=== PATIENT | female | born 1985 | race Hispanic/Latino ===

== ENCOUNTER 2017-08-21 09:37 | Inpatient (IN) | payer OTHER ==
[2017-08-21 10:41] VITALS: BMI 31.1
[2017-08-21] MEDS: Lactated Ringer's 1,000 ML IV SCH ×4 (10:45→20:45)
[2017-08-21] MEDS ORDERED: Oxytocin 30 units/LR 500ML 30 U/500 ML BAG IV ONE (10:46)
[2017-08-21 11:02] LABS: BASO % 0.3 % (0.0-2.0); EOS # 0.1 K/uL (0.0-0.7); EOS % 0.6 % (0.0-4.0); HEMOGLOBIN 12.5 g/dL (12.0-16.0); LYMPH # 1.8 K/uL (1.0-4.3); LYMPH % 20.6 % (20.0-40.0); MEAN CELL VOLUME 90.7 fl (81.0-99.0); MEAN CORPUSCULAR HEMOGLOBIN 32.1 pg (27.0-31.0); MEAN CORPUSCULAR HGB CONC 35.4 g/dL (33.0-37.0); MEAN PLATELET VOLUME 10.1 fl (7.2-11.7); MONO # 0.6 K/uL (0.0-0.8); MONO % 7.3 % (0.0-10.0); NEUT # 6.4 K/uL (1.8-7.0); NEUT % 71.2 % (50.0-75.0); NRBC % 0.2 % (0.0-0.0); RBC 3.88 Mil/uL (3.80-5.20)
[2017-08-21] MEDS ORDERED: Oxytocin 30 units/LR 500ML 30 U/500 ML BAG IV SCH (11:30)
--- NOTE | 2017-08-21 13:46 | OBHP ---
Datetime: 08/21/2017 13:38 IP Adm Impression: Term, intrauterine IP Admit Plan: Admit to unit; Observation/Evaluation Admit Comment, IP Provider: 32 yo G1 at 40+4 wks w/ SROM, admitted to L_D. Pitocin started. FHT reassuring. GBS negative. H_P dictated, "[id number]" (ES) Extremities - PN: Normal Abdomen - PN: Normal Lungs - PN: Normal Heart - PN: Normal Neurologic - PN: Normal General - PN: Normal FHR - Baseline A Provider: 130's Membranes, Provider: Intact Contraction Comments Provider: 2-6 EGA AdmitDate IP: 40.1 Vital Signs Provider: Reviewed; Within Normal Limits IP Chief Complaint: Uterine contractions; Suspected ruptured membranes NICHD Variability Prov Fetus A: Moderate 6-25bpm NICHD Accel Fetus A IP Provider: 15X15 FHR Category Provider Fetus A: Category I NICHD Decel Fetus A IP Provider: None Dilatation, Provider: 1 Effacement, Provider: 60 Station, Provider: -3 Genitourinary Exam: Normal
--- NOTE | 2017-08-21 13:49 | OBADHP ---
Datetime: 08/21/2017 13:46 Admit Comment, IP Provider: 32 yo G1 at 40+4 wks w/ SROM, admitted to L_D. FHT reassuring. GBS negative. Pitocin started. H_P dictated, "[id number]" (ES) Extremities - PN: Normal Abdomen - PN: Normal Back - PN: Normal Lungs - PN: Normal Heart - PN: Normal General - PN: Normal FHR - Baseline A Provider: 130's Contraction Comments Provider: Q2-6 Vital Signs Provider: Reviewed; Within Normal Limits IP Chief Complaint: Suspected ruptured membranes NICHD Variability Prov Fetus A: Moderate 6-25bpm NICHD Accel Fetus A IP Provider: 15X15 NICHD Decel Fetus A IP Provider: None Dilatation, Provider: 1 Effacement, Provider: 60 Station, Provider: -3 Genitourinary Exam: Normal EGA AdmitDate IP: 40.1 IP Adm Impression: Term, intrauterine IP Admit Plan: Admit to unit Datetime: 08/21/2017 13:38 Neurologic - PN: Normal Amniotic Fluid Color, Provider: Clear Membranes, Provider: Ruptured Comments, ACOG Physical Exam: Spec: postive pool, nitrazine positive Pool Provider: Positive Nitrazine Provider: Positive FHR Category Provider Fetus A: Category I
--- NOTE | 2017-08-21 14:13 | HP ---
HISTORY OF PRESENT ILLNESS: This is a 32-year-old G1 at 40 weeks and 4 days with an EDC of 08/17/2017 by LMP who reports that her water broke at 8:15 a.m., reports that she had contractions on and off for the last week, but they became more frequent, about every 15 minutes, after her water broke. She reports that she noticed blood tinge in the water and reports movement today. The patient's care was with [facility] with Dr. Brooks. The patient is Rh negative. The patient received Tdap on 06/20/2017 and she received RhoGAM on 05/25/2017. This was complicated by the fact that she had an elevated one-hour Glucola of 156 on 05/25/2017 and she had a normal 3-hour glucose tolerance test on 06/06/2017. PAST MEDICAL HISTORY: Seasonal allergies. PAST SURGICAL HISTORY: None. MEDICATIONS: vitamins. ALLERGIES: NO KNOWN DRUG ALLERGIES. FAMILY HISTORY: Noncontributory. SOCIAL HISTORY: The patient denies tobacco, alcohol or illicit drug use. PAST GYNECOLOGIC HISTORY: Menarche at 13 with a history of regular periods. The patient denies any history of any STDs or any abnormal Paps. LABS: On 09/30/2016, varicella zoster IgG was positive. Pap smear was negative, HPV negative, Rubella was immune. On 01/05/2017, HIV was nonreactive. SMA, cystic fibrosis, fragile X, and Duchenne muscular dystrophy were all negative. Varicella zoster IgG was positive. Blood type was O negative. Antibody screen negative. Hemoglobin electrophoresis normal. Urine culture with probable contamination. RPR was nonreactive. Rubella was positive. Hepatitis B surface antigen negative. On 01/30/2017, panorama was low risk male fetus. On 01/31/2017, her urine culture was probable contamination. Gonorrhea and Chlamydia and trichomonas were all negative. On 04/06/2017, AFP was negative. On 05/25/2017, one-hour Glucola was 156. RPR was nonreactive and HIV was nonreactive. On 06/06/2017, 3-hour glucose tolerance testing was fasting- 83, 1-hour was 138, 2-hour was 115, and 3-hour was 110. On 07/25/2017, group B strep was negative, hemoglobin was 12.5, platelets were 216,000. PHYSICAL EXAMINATION: VITAL SIGNS: Afebrile. Vital signs stable. GENERAL: The patient appears comfortable, lying in bed. HEART: Regular rate and rhythm. CHEST: Lungs are clear to auscultation bilaterally. ABDOMEN: Soft, nontender, and gravid. head feels to be down. SPECULUM: Positive pooling, positive nitrazine. VAGINAL: Cervix was dilated 1 cm, 60% effaced, -3 station on at 10:20 a.m. External monitoring: Baseline is in the 130s with moderate variability with positive accelerations. Tocodynamometer: Contractions about every 2-6 minutes. ASSESSMENT AND PLAN: This is a 32-year-old G1 at 40 weeks and 4 days with spontaneous rupture of membranes. She is GBS negative. heart rate is reassuring. The patient was admitted to labor and delivery. Will start Pitocin. Agustin Quevedo MD MTDD
[2017-08-21] MEDS ORDERED: Fentanyl/Bupivacaine HCl 250 ML EPI ONE ×2 (15:28→15:30)
[2017-08-21] MEDS ORDERED: Lidocaine 1% Inj (20ml) ONE (23:44)
[2017-08-22] MEDS ORDERED: Bupivacaine HCl 0.25% PF (10 ml) Inj ONE (00:21)
[2017-08-22] MEDS ORDERED: ceFAZolin 2 GM in Sodium Chloride 0.9% 100 ML IVPB ONE (07:30)
--- NOTE | 2017-08-22 07:42 | OBPN ---
Datetime: 08/22/2017 07:01 IP Progress Impression: Arrest of dilatation/descent IP Informed Consent Obtain: Section Delivery; Risks, Benefits and Alternatives Discussed IP Progress Plan: Deliver- Section Membranes, Provider: Ruptured Amniotic Fluid Color, Provider: Clear FHR - Baseline A Provider: 120's IP Progress Note Comment: 32 yo G1 at 40+5 wks w/ arrest of dilation at 9 cm. Discussed dx w/ pt and her . Consents signed for primary section and possible transfusion. All questions answered. Vital Signs Provider: Reviewed NICHD Accel Fetus A IP Provider: 15X15 FHR Category Provider Fetus A: Category I NICHD Variability Prov Fetus A: Moderate 6-25bpm Dilatation, Provider: 9 Effacement, Provider: 100 Station, Provider: -1 NICHD Decel Fetus A IP Provider: None Datetime: 08/21/2017 13:46 Contraction Comments Provider: Q2-6 Datetime: 08/21/2017 13:38 Pool Provider: Positive Nitrazine Provider: Positive
[2017-08-22] MEDS ORDERED: ceFAZolin IV 2 gm in Dextrose 2 GM/50 ML BAG IVPB ONE ×2 (08:08→08:45)
[2017-08-22] MEDS ORDERED: Lidocaine 2% PF (10 ml) Amp ONE (08:16)
[2017-08-22] MEDS ORDERED: EPINEPHrine 1 mg/ml (1:1000) Inj ONE (08:17)
[2017-08-22] MEDS ORDERED: Morphine 1 mg/ml preservative-free Inj(Duramorph) ONE (08:18)
[2017-08-22] MEDS ORDERED: Phenylephrine 10 mg/ml Inj ONE ×2 (08:43→08:44)
[2017-08-22] MEDS ORDERED: ePHEDrine 50 mg/ml Inj ONE (08:47)
[2017-08-22] MEDS ORDERED: Oxycodone/Acetaminophen 5/325 mg Tab PO PRN ×3 (09:52→14:20)
[2017-08-22] MEDS ORDERED: Simethicone 80 mg Chewtab PO SCH (10:00)
[2017-08-22] MEDS ORDERED: DiphenhydrAMINE 50 mg/ml Inj IVP PRN ×2 (10:01→14:20)
[2017-08-22] MEDS ORDERED: Naloxone 0.4 mg/ml Inj (Adult) IVP PRN ×2 (10:01→14:20)
--- NOTE | 2017-08-22 11:43 | OBDS ---
DELIVERY PERSONNEL Delivery Doctor: Pedrito Quevedo MD Rerecording Mixer: Linda Virgen RN Anesthesiologist: Margret James MD MATERNAL INFORMATION Delivery Anesthesia: Spinal Medications in Delivery: Pitocin 30 mu/500 mL, Pitocin 20 mu/1000 mL Placenta Cultured: No Maternal Complications: Other Other Maternal Complications: Arrest of Descent Provider Comments: Pre-op dx: 32 yo G1 at 40+5 wks w/ arrest of dilation at 9 cm Post-op dx: Same Procedure: Primary low transverse section Surgeon: Sae [employer]chand[employer] Planning Manager: Dr. Kang, the hospitalist Anesthesia: Dr. James Anesthesia: Epidural-> Spinal Findings: Viable male delivered through clear fluid in OP position at 0856. Apgars 9 and 9 . Wt 3350 gms, 7#6. Nl appearing uterus, tubes and ovaries EBL: 750 mL Complications: None LABOR SUMMARY EDC: 08/20/2017 00:00 No. Babies in Womb: 1 Attempted: No Labor Anesthesia: Epidural LABOR INFORMATION Reason for Induction: Premature Rupture of Membranes Onset of Labor: 08/22/2017 23:20 Oxytocin: Augmentation Group B Beta Strep: Negative Antibiotics # of Doses: 1 Antibiotics Time of Last Dose: 0835 Steroids Given: None Reason Steroids Not Administered: Not Applicable MEMBRANES Membranes Rupture Method: Spontaneous Rupture of Membranes: 08/21/2017 08:15 Length of Rupture (hrs): 24.68 Amniotic Fluid Color: Clear Amniotic Fluid Amount: Moderate Amniotic Fluid Odor: Normal STAGES OF LABOR Stage 3 hrs: 0 Stage 3 min: 1 Total Time in Labor hrs: -14 Total Time in Labor min: -23 CSECTION DELIVERY Primary Indication: Arrest of Descent CSection Urgency: Non Elective CSection Incidence: Primary Labor: Labor Elective: Nonelective CSection Incision: Lower Uterine Transverse BABY A INFORMATION Infant Delivery Date/Time: 08/22/2017 08:56 Method of Delivery: Born in Route : No : N/A Forceps: N/A Vacuum Extraction: N/A Shoulder Dystocia : No SHOULDER DYSTOCIA BABY A Delivery Date/Time: 08/22/2017 08:56 PRESENTATION/POSITION BABY A Presentation: Cephalic Cephalic Presentation: Vertex Breech Presentation: N/A PLACENTA INFORMATION BABY A Placenta Delivery Time : 08/22/2017 08:57 Placenta Method of Delivery: Expressed Placenta Status: Delivered SCORES BABY A Heart Rate 1 min: >100 bpm Resp Effort 1 min: Good Cry Reflex Irritability 1 min: Cough or Sneeze or Pulls Away Muscle Tone 1 min: Active Motion Color 1 min: Body [place], Extremities Blue Resuscitation Effort 1 min: N/A SCORE 1 MIN: 9 Heart Rate 5 min: >100 bpm Resp Effort 5 min: Good Cry Reflex Irritability 5 min: Cough or Sneeze or Pulls Away Muscle Tone 5 min: Active Motion Color 5 min: Body [place], Extremities Blue Resuscitation Effort 5 min: N/A SCORE 5 MIN: 9 INFANT INFORMATION BABY A Gestational Age at Delivery: 40.2 Gestational Status: Post-term Outcome : Liveborn Infant Condition : Stable Infant Sex: Male IDENTIFICATION/MEDS BABY A ID Band Number: [id number] ID Band Location: Left Leg; Left Arm WEIGHT/LENGTH BABY A Birthweight (gms): 3350 Weight (lb): 7 Infant Weight (oz): 6 CORD INFORMATION BABY A No. Cord Vessels: 3 Nuchal Cord : N/A Cord Blood Taken: Yes Infant Suction: Mouth; Nose
--- NOTE | 2017-08-22 13:19 | OP ---
PROCEDURE DATE: 08/22/2017 PREOPERATIVE DIAGNOSIS: This is a 32-year-old G1 at 40 weeks and 5 days with arrest of dilation at 9 cm. POSTOPERATIVE DIAGNOSIS: This is a 32-year-old G1 at 40 weeks and 5 days with arrest of dilation at 9 cm. PROCEDURE: Primary low-transverse section. SURGEON: Agustin Quevedo MD ABSORPTION PLANT OPERATOR HELPER: Lance Kang MD, the hospitalist. Dr. Kang was the assistant spa manager and participated in the surgery for the entire duration of the case. She helped create exposure, she also helped maintain hemostasis, operated throughout the case on the side of the patient that was across from her and assisted in the delivery of the by applying fundal pressure. This case could not have been completed without her assistance. ANESTHESIA ADMINISTERED BY: Dr. James. TYPE OF ANESTHESIA: Spinal. The epidural was changed to a spinal. FINDINGS: A viable male infant delivered through clear fluid in OP position at 0856 hours. Apgars were 9 and 9 at one and five minutes respectively. The weight was 3350 g or 7 pounds 6 ounces. Normal-appearing uterus, tubes and ovaries. ESTIMATED BLOOD LOSS: About 750 mL. COMPLICATIONS: None. DESCRIPTION OF PROCEDURE: The patient was taken to the operating room where epidural anesthesia was changed to spinal. She was then prepped and draped in the normal sterile fashion in the dorsal supine position with a leftward tilt. A time-out was done. The spinal was tested and found to be adequate. A Pfannenstiel skin incision was then made with the scalpel and carried through to the underlying layer of fascia with the Bovie. The fascia was incised in the midline. The incision was extended laterally with the Bovie over a Park. The inferior aspect of the fascial incision was then grasped with the Florentin clamps, elevated and the underlying rectus muscles were dissected off bluntly with the Bovie. Attention was then turned to the superior aspect of this incision, which in a similar fashion was grasped, tented up with the Florentin clamps, and the rectus muscles dissected off bluntly and with the Bovie. The rectus muscles were then in the midline. The peritoneum was identified, tented up and entered sharply with the Metzenbaum scissors. The peritoneal incision was then extended superiorly and inferiorly with good visualization of the bladder. The bladder blade was then inserted and the vesicouterine peritoneum was identified, grasped with the pickups and entered sharply with the Metzenbaum scissors. The incision was then extended laterally and the bladder flap was created digitally. The bladder blade was then reinserted and the lower uterine segment was incised in transverse fashion with the scalpel. The uterine incision was then extended digitally in a cephalocaudad direction. The bladder blade was removed and the infant's head was delivered atraumatically. The nose and mouth were suctioned with the bulb suction. The cord was clamped and cut. The was handed off to the awaiting customer assistance representative. Cord blood was then collected. The placenta was then delivered as the uterus was massaged. The uterus was then exteriorized and cleared of all clots and debris with a dry sponge curettage. The uterine incision was then repaired with 0 Vicryl in a running locked fashion. A second layer of 0 Monocryl was used in an imbricating fashion to reinforce the incision for hemostasis and for hemostasis. A [id number] suture with 0 Monocryl was then placed in the center of the incision for hemostasis. The abdomen was then well irrigated. The uterus was returned to the abdomen. The gutters were cleared of all clots. The uterine incision was reexamined and found to be hemostatic. The peritoneum was then closed with 2-0 chromic. The rectus muscle was then re-approximated with interrupted stitches of 0 chromic. The fascia was then re-approximated with 0 Vicryl in a running fashion. The space of the subcutaneous fat was then closed with interrupted stitches of 2-0 plain gut. The skin was then closed with 4-0 Monocryl in a subcuticular fashion. The patient tolerated the procedure well. Sponge, lap, and needle counts were correct. The patient had received 2 g of Ancef prior to the procedure. The patient was taken to the recovery room in stable condition. Agustin Quevedo MD REJI
[2017-08-22] MEDS: Lactated Ringer's 1,000 ML IV SCH ×2 (15:00→22:27)
[2017-08-22] MEDS: Simethicone 80 mg Chewtab PO SCH ×2 (15:19→22:26)
[2017-08-23] MEDS: Simethicone 80 mg Chewtab PO SCH ×4 (04:41→21:17)
[2017-08-23 07:06] LABS: BASO % 0.1 % (0.0-2.0); EOS # 0.1 K/uL (0.0-0.7); EOS % 0.4 % (0.0-4.0); HEMOGLOBIN 11.2 g/dL (12.0-16.0); LYMPH # 1.5 K/uL (1.0-4.3); LYMPH % 6.8 % (20.0-40.0); MEAN CELL VOLUME 91.9 fl (81.0-99.0); MEAN CORPUSCULAR HEMOGLOBIN 31.3 pg (27.0-31.0); MEAN PLATELET VOLUME 9.1 fl (7.2-11.7); MONO % 4.2 % (0.0-10.0); NEUT # 19.9 K/uL (1.8-7.0); NEUT % 88.5 % (50.0-75.0); PLATELET COUNT 172 K/uL (130-400); RBC 3.57 Mil/uL (3.80-5.20); RED CELL DISTRIBUTION WIDTH 15.4 % (11.5-14.5); WHITE BLOOD COUNT 22.5 K/uL (4.8-10.8)
[2017-08-23 07:58] LABS: TOTAL CELLS COUNTED 100
[2017-08-23 08:00] LABS: ANISOCYTOSIS SLIGHT; LYMPHOCYTE 8 % (20-50); MONOCYTE 5 % (0-10); PLATELET ESTIMATE NORMAL (NORMAL)
[2017-08-23 08:01] LABS: NEUTROPHIL 87 % (42-75)
--- NOTE | 2017-08-23 14:43 | OBPPN ---
Datetime: 08/23/2017 14:40 PP Pain Prov: Within normal limits PP Nausea Prov: Denies PP Flatus Prov: Yes PP Breasts Prov: Not Done PP Heart Prov: Normal PP Lungs Prov: Normal PP Abdomen/Uterus Prov: Normal PP Lochia Prov: Not Done PP Vulva/Perineum Prov: Not Done PP CVA Tenderness Prov: Normal PP Extremities Prov: Normal PP C/S Incision Prov: Normal PP Impression Prov: Normal progression PP Plan Prov: Continue present management PP Progress Note Prov: Recent doing well ambulating tolerating diet reports minimal lochia pain well -controlled Vital signs stable afebrile Uterus firm below the umbilicus Incision clean dry and intact No Homans Postop day #2 Ambulation, analgesia, DC IV fluids DC Solis. Vital Signs Provider PP: Reviewed
[2017-08-23] MEDS: Oxycodone/Acetaminophen 5/325 mg Tab PO PRN (21:17)
[2017-08-24] MEDS: Simethicone 80 mg Chewtab PO SCH ×4 (05:14→21:57)
[2017-08-24] MEDS: Oxycodone/Acetaminophen 5/325 mg Tab PO PRN (21:58)
[2017-08-24] MEDS ORDERED: Lansinoh for Breast Feeding Mothers TP ONE (22:44)
[2017-08-25] MEDS: Simethicone 80 mg Chewtab PO SCH ×2 (03:11→09:12)
--- NOTE | 2017-08-25 07:49 | OBPPN ---
Datetime: 08/25/2017 07:43 PP Pain Prov: Within normal limits PP Nausea Prov: Denies PP Flatus Prov: Yes PP BM Prov: Yes PP Abdomen/Uterus Prov: Normal PP Lochia Prov: Normal PP Extremities Prov: Normal PP C/S Incision Prov: Normal PP Progress Prov: Normal PP Comments Phys Exam Prov: Incisio: intact w/ steri strips PP Impression Prov: Normal progression PP Plan Prov: Discharge PP Progress Note Prov: POD 3 s/p primary section, doing well, breast feeding Rx's motrin and percocet given to pt Discharge home today Vital Signs Provider PP: Reviewed
--- NOTE | 2017-08-25 07:49 | OBDCSUM ---
Datetime: 08/25/2017 07:47 Discharged to, Provider: Home Follow up at, Provider: Dr. Brooks Disch Instr Activity: Normal activity Disch Instr Diet: Regular Discharge Instructions, Provider: Routine instructions given Discharge Diagnosis, Provider: Term Delivered Discharge Time: 08/25/2017 07:47 Follow up in weeks, Provider: 1 week Contraception discussed, Prov: No Disch Activity Restrictions: No exercising; No lifting; No driving; No sexual activity; Nothing in v agina - [place], tampons, douche
[2017-08-25 19:23] VITALS: BP 142/94; PULSE 99; RESP 20; TEMP 98.8; O2SAT 98
== END 2017-08-25 15:20 | disposition home or self-care (01) | DRG 766 ==
LOC: H.EROB2 09:37 → H.L&D 10:27 → H.OB/GYN 08-22 14:20
PROVIDERS: ADMIT Obstetrics & Gynecology; ATTEND Obstetrics & Gynecology
PROC: 10D00Z1 Extraction of Products of Conception, Low, Open Approach (ICD-10-PCS; principal; 2017-08-21)
PROC: 4A1HXCZ Monitoring of Products of Conception, Cardiac Rate, External Approach (ICD-10-PCS; 2017-08-21)
DX: O62.0 Primary inadequate contractions (principal); Z37.0 Single live birth; Z3A.40 40 weeks gestation of pregnancy; O62.1 Secondary uterine inertia